=== PATIENT | female | born 1995 | race Caucasian/White ===

== ENCOUNTER → 2018-09-10 | Outpatient (REF) | payer OTHER | LOC: M LAB REF 19:32 | PROVIDERS: ATTEND Physician Assistant | DX: J02.9 Acute pharyngitis, unspecified (principal) ==

== ENCOUNTER → 2019-03-04 | Outpatient (CLI) | payer BC ==
[2019-03-04 08:48] LABS: BASO % 0.4 % (0.0-1.0); EOS # 0.1 10^3/uL (0.0-0.50); EOS % 1.1 % (0.0-3.0); HEMATOCRIT 40.7 % (36.0-47.0); HEMOGLOBIN 14.1 g/dl (12.0-15.5); LYMPH # 2.2 10^3/uL (1.5-6.5); LYMPH % 19.8 % (24.0-44.0); MEAN CORPUSCULAR HEMOGLOBIN 30.7 pg (27.0-33.0); MEAN CORPUSCULAR HGB CONC 34.6 g/dl (32.0-36.5); MEAN CORPUSCULAR VOLUME 88.5 fl (80.0-96.0); MONO # 0.8 10^3/uL (0.0-0.8); MONO % 7.4 % (0.0-5.0); NEUTROPHILS # 7.9 10^3/uL (1.8-7.7); NEUTROPHILS % 70.7 % (36.0-66.0); PLATELET COUNT, AUTOMATED 214 10^3/uL (150-450); WHITE BLOOD COUNT 11.2 10^3/uL (4.0-10.0)
[2019-03-04 09:16] LABS: ALBUMIN 3.6 GM/DL (3.2-5.2); ALT/SGPT 18 U/L (12-78); BILIRUBIN,TOTAL 0.6 MG/DL (0.2-1.0); BLOOD UREA NITROGEN 9 MG/DL (7-18); CALCIUM LEVEL 8.5 MG/DL (8.5-10.1); CARBON DIOXIDE LEVEL 28 MEQ/L (21-32); CHLORIDE LEVEL 105 MEQ/L (98-107); CREATININE FOR GFR 0.79 MG/DL (0.55-1.30); FERRITIN 52 NG/ML (8-252); FREE T4 1.08 NG/DL (0.76-1.46); GLOMERULAR FILTRATION RATE > 60.0 (>60); GLUCOSE, FASTING 85 MG/DL (70-100); IRON (FE) 137 UG/DL (50-170); PERCENT SATURATION 47.4 % (13.2-45.0); POTASSIUM SERUM 3.7 MEQ/L (3.5-5.1); SODIUM LEVEL 137 MEQ/L (136-145); TOTAL IRON BINDING CAPACITY 289 UG/DL (250-450); TOTAL PROTEIN 6.8 GM/DL (6.4-8.2)
[2019-03-04 10:19] LABS: HEMOGLOBIN A1c 5.1 %
[2019-03-04 10:36] LABS: VITAMIN B12 LEVEL 363 PG/ML
[2019-03-04 10:37] LABS: FOLATE 10.8 NG/ML
== END ==
LOC: M LAB 08:03
PROVIDERS: ATTEND Physician Assistant
DX: R53.83 Other fatigue (principal)

== ENCOUNTER → 2019-10-04 | Outpatient (CLI) | payer BC, OTHER ==
[2019-10-04 12:24] LABS: BASO # 0.1 10^3/uL (0.0-0.2); BASO % 0.7 % (0.0-1.0); EOS # 0.1 10^3/uL (0.0-0.5); EOS % 1.2 % (0.0-3.0); HEMATOCRIT 38.7 % (36.0-47.0); HEMOGLOBIN 13.1 g/dl (12.0-15.5); LYMPH % 21.8 % (24.0-44.0); MEAN CORPUSCULAR HEMOGLOBIN 29.2 pg (27.0-33.0); MEAN CORPUSCULAR HGB CONC 33.9 g/dl (32.0-36.5); MEAN CORPUSCULAR VOLUME 86.2 fl (80.0-96.0); MONO # 0.6 10^3/uL (0.0-0.8); MONO % 6.4 % (0.0-5.0); NEUTROPHILS # 6.3 10^3/uL (1.5-8.5); NEUTROPHILS % 69.6 % (36.0-66.0); PLATELET COUNT, AUTOMATED 229 10^3/uL (150-450); RED BLOOD COUNT 4.49 10^6/uL (4.00-5.40)
[2019-10-04 13:02] LABS: BLOOD UREA NITROGEN 7 MG/DL (7-18); CALCIUM LEVEL 8.6 MG/DL (8.5-10.1); CARBON DIOXIDE LEVEL 26 MEQ/L (21-32); CHLORIDE LEVEL 108 MEQ/L (98-107); CREATININE FOR GFR 0.67 MG/DL (0.55-1.30); FREE T4 1.06 NG/DL (0.76-1.46); GLOMERULAR FILTRATION RATE > 60.0 (>60); GLUCOSE, FASTING 91 MG/DL (70-100); POTASSIUM SERUM 3.9 MEQ/L (3.5-5.1); SODIUM LEVEL 139 MEQ/L (136-145)
[2019-10-04 13:04] LABS: TOTAL 25(OH) VITAMIN D 17.2 NG/ML (30.0-100.0)
== END ==
LOC: M LAB 11:06
PROVIDERS: ATTEND Physician Assistant
DX: F41.1 Generalized anxiety disorder (principal)

== ENCOUNTER 2019-11-17 13:12 | Emergency (ER) | payer OTHER, BC ==
[~2019-11-17] VITALS: Ht 165.1 cm; Wt 133.9 kg
[2019-11-17] MEDS ORDERED: DULO1CAP6 (13:21)
[2019-11-17] MEDS ORDERED: CLIN1GEL48 (13:21)
[2019-11-17] MEDS ORDERED: VITA50005 (13:21)
[2019-11-17] MEDS ORDERED: ESTA0.25 (13:21)
[2019-11-17 13:55] LABS: BASO # 0.1 10^3/uL (0.0-0.2); BASO % 0.5 % (0.0-1.0); EOS # 0.1 10^3/uL (0.0-0.5); EOS % 0.8 % (0.0-3.0); HEMATOCRIT 39.4 % (36.0-47.0); HEMOGLOBIN 13.6 g/dl (12.0-15.5); LYMPH # 2.2 10^3/uL (1.5-5.0); LYMPH % 19.9 % (24.0-44.0); MEAN CORPUSCULAR HEMOGLOBIN 29.9 pg (27.0-33.0); MEAN CORPUSCULAR HGB CONC 34.5 g/dl (32.0-36.5); MEAN CORPUSCULAR VOLUME 86.6 fl (80.0-96.0); MONO # 0.6 10^3/uL (0.0-0.8); MONO % 5.3 % (0.0-5.0); NEUTROPHILS % 73.1 % (36.0-66.0); PLATELET COUNT, AUTOMATED 258 10^3/uL (150-450); RED BLOOD COUNT 4.55 10^6/uL (4.00-5.40)
[2019-11-17 14:28] LABS: ALBUMIN 3.3 GM/DL (3.2-5.2); ALT/SGPT 18 U/L (12-78); BILIRUBIN,TOTAL 0.2 MG/DL (0.2-1.0); BLOOD UREA NITROGEN 12 MG/DL (7-18); CALCIUM LEVEL 8.5 MG/DL (8.5-10.1); CARBON DIOXIDE LEVEL 27 MEQ/L (21-32); CHLORIDE LEVEL 107 MEQ/L (98-107); CREATININE FOR GFR 0.75 MG/DL (0.55-1.30); GLOMERULAR FILTRATION RATE > 60.0 (>60); GLUCOSE, FASTING 86 MG/DL (70-100); POTASSIUM SERUM 4.2 MEQ/L (3.5-5.1); SODIUM LEVEL 138 MEQ/L (136-145); TOTAL PROTEIN 6.9 GM/DL (6.4-8.2)
[2019-11-17 14:37] LABS: HCG, SERUM QUALITATIVE NEGATIVE (NEGATIVE); HEPATITIS B SURFACE ANTIBODY NEGATIVE (POSITIVE)
[2019-11-17 14:48] LABS: HEPATITIS B SURFACE ANTIGEN NEGATIVE (NEGATIVE)
[2019-11-17 14:50] VITALS: BP 140/88
== END 2019-11-17 14:55 | disposition home or self-care (01) ==
LOC: M ED 13:12
DX: Z77.21 Contact with and (suspected) exposure to potentially hazardous body fluids (principal); W46.1XXD Contact with contaminated hypodermic needle, subsequent encounter; Y92.89 Other specified places as the place of occurrence of the external cause; Y93.F9 Activity, other caregiving; Y99.0 Civilian activity done for income or pay; Z79.3 Long term (current) use of hormonal contraceptives; Z79.899 Other long term (current) drug therapy

== ENCOUNTER → 2019-11-22 | Outpatient (CLI) | payer BC, OTHER ==
[~2019-11-22] MED LIST: CLIN1GEL48; DULO1CAP6; ESTA0.25; VITA50005
--- NOTE | 2019-11-22 20:18 | REP ---
Clinical: Trauma. Pain. Technique: AP, lateral, bilateral oblique views. Findings: The carpal bones, surrounding osseous structures, soft tissues, and joint spaces are normal. There is no evidence for acute fracture or dislocation. No subcutaneous emphysema or radiodense foreign body. Impression: No acute fracture or dislocation Electronically Signed by Clinton Lei MD 11/22/2019 08:09 P
--- NOTE | 2019-11-22 20:18 | REP ---
Clinical: thoracic pain. Trauma. Technique: AP, lateral, and swimmers views. Findings: Alignment and kyphosis is maintained. Vertebral bodies intact. No acute fracture / compression injury or subluxation. No degenerative changes. Paravertebral soft tissues are normal. Impression: Normal thoracic spine series. Electronically Signed by Clinton Lei MD 11/22/2019 08:09 P
--- NOTE | 2019-11-22 20:19 | REP ---
Clinical: Pain. Recent trauma. Technique: AP, lateral, bilateral oblique, and coned-down views. Findings: Alignment and lordosis is maintained. The vertebral bodies including transverse process and spinous processes are intact and normal. There is no evidence for acute fracture / compression injury or subluxation. No evidence for spondylolysis or spondylolisthesis. No significant degenerative change is noted. Impression: Normal lumbosacral spine radiograph series. Electronically Signed by Clinton Lei MD 11/22/2019 08:10 P
== END ==
LOC: M WUC 12:39
PROVIDERS: ATTEND Nurse Practitioner Family
DX: M54.5 Low back pain (principal); M54.6 Pain in thoracic spine; M25.532 Pain in left wrist

== ENCOUNTER → 2020-02-02 | Outpatient (CLI) | payer BC, OTHER ==
--- NOTE | 2020-02-11 17:23 | SLEEPHOME ---
DATE OF PROCEDURE: 01/24/2020 ORDERED BY: IAN Menendez [facility] home sleep testing was performed due to concern for the obstructive sleep apnea syndrome in this patient with complaints of fatigue. For testing a nocturnal T3 respiratory monitoring device was used. Continuous record was made of pulse, oxygen saturation, airflow, chest and abdominal strain, and body position. 8 hours and 47 minutes of data were reviewed. There were 5 hours and 33 minutes marked as time in bed. During the interval marked time in bed, there were only 13 respiratory events identified of 10 seconds in duration or greater for a respiratory event index of 2.3. The events that were seen were more frequent in the supine posture. The patient's baseline pulse rate was 92. Pulse rate ranged 75-129. Baseline saturation was 95%. Saturations were seen to fall as low as 84% and testing was performed in both the supine and nonsupine positions. IMPRESSION: Abnormal home sleep testing with repetitive respiratory events and oxygen desaturations to 84% with a respiratory event index of 2.3 is suggestive of positional sleep disorder breathing. RECOMMENDATIONS: Sleep position retraining for avoidance of the supine posture may be sufficient to address the patient's problem. The frequency of events did not need meet that which is usually seen in overt obstructive sleep apnea syndrome. However, if sleep symptoms persist repeat testing or referral for formal sleep evaluation is recommended.
== END ==
LOC: M SLEEP HO 01-24 12:23
PROVIDERS: ATTEND Physician Assistant
DX: Z00.00 Encounter for general adult medical examination without abnormal findings (principal)

== ENCOUNTER → 2020-02-07 | Outpatient (REF) | LOC: M EMPSKH 15:02 | PROVIDERS: ATTEND Family Medicine | DX: Z02.9 Encounter for administrative examinations, unspecified (principal) ==

== ENCOUNTER → 2020-02-22 | Outpatient (REF) | LOC: M LAB 12:22 | PROVIDERS: ATTEND Nurse Practitioner Adult Health | DX: Z00.00 Encounter for general adult medical examination without abnormal findings (principal) ==

== ENCOUNTER → 2020-02-22 | Outpatient (CLI) | payer BC, OTHER ==
[2020-02-22 14:35] LABS: FREE T4 1.09 NG/DL (0.76-1.46); THYROID STIMULATING HORMONE 2.53 uIU/ML (0.358-3.740)
== END ==
LOC: M LAB 12:25
PROVIDERS: ATTEND Physician Assistant
DX: Z00.00 Encounter for general adult medical examination without abnormal findings (principal); R53.83 Other fatigue

== ENCOUNTER → 2020-03-18 | Outpatient (CLI) | payer BC, OTHER | LOC: M LABSMTC 09:54 | PROVIDERS: ATTEND Pediatrics | DX: Z11.59 Encounter for screening for other viral diseases (principal) | CPT/HCPCS: C9803; U0002 ==

== ENCOUNTER → 2020-03-21 | Outpatient (CLI) | payer BC, OTHER | LOC: M LABSMTC 12:37 | PROVIDERS: ATTEND Pediatrics | DX: Z11.59 Encounter for screening for other viral diseases (principal) | CPT/HCPCS: C9803; U0002 ==

== ENCOUNTER → 2020-07-19 | Outpatient (CLI) | payer SELFPAY | LOC: M LABSMTC 12:27 | PROVIDERS: ATTEND Pediatrics | DX: Z20.828 Contact with and (suspected) exposure to other viral communicable diseases (principal) ==

== ENCOUNTER → 2025-07-12 | Outpatient (RCR) ==
[~2025-07-12] MED LIST changes: +CLIN1GEL; -CLIN1GEL48; +ERGO500029; -VITA50005
== END ==
LOC: M EMPSKH 06-15 12:53
PROVIDERS: ATTEND Family Medicine
DX: Z20.828 Contact with and (suspected) exposure to other viral communicable diseases (principal)